=== PATIENT | male | born 1980 | race Caucasian/White ===

== ENCOUNTER 2016-10-12 09:47 | Emergency (ER) | payer OTHER ==
[~2016-10-12] VITALS: Ht 182.9 cm; Wt 72.7 kg
[~2016-10-12 09:47] MED LIST: LORA-302 PO
[2016-10-12 09:59] VITALS: BP 159/93; PULSE 87; RESP 16; O2SAT 100
--- NOTE | 2016-10-12 10:04 | ED.REPORT ---
HPI-Abd Pain M Under 40 Date of Service October 12, 2016 ED Provider: Dr. Alcantara 36 y/o male with a hx of DM presents to the ED complaining of abdominal pain and vomiting , onset 3 days ago. The pt reports he experienced abdominal pain in the middle of the night 3 days ago and began vomiting. Yesterday, the pt felt better and went to work but the pain returned last night after dinner. He states "it feels like my stomach is in knots". Associated sx include vomiting every 15 minutes and mild diarrhea. The pt denies fever, dysuria, chest pain and cough. He states he has had similar sx before at which point he was put on IV and given anti-nausea medications. His current blood sugar is 211. Nursing Notes Stated Complaint: NAUSEA/STOMACH PAIN Chief Complaint: Male Abdominal Pain Nursing Notes Reviewed: Yes Allergies: Coded Allergies: No Known Allergies (Unverified , 05/01/15) Scheduled PRN Lorazepam (Ativan) 0.5 Mg Tablet 0.5 MG PO HS PRN PRN For Insomnia Take for anxiety and difficulty sleeping Metoclopramide (Reglan) 10 Mg Tablet 10 MG PO QID PRN PRN For Nausea General Time Seen by MD: 10:04 Chief Complaint Abdominal pain Hx Obtained From: Patient Arrived By: Walk-in Sudden in Onset?: Yes Onset Occurred: 3 days ago Symptom Duration: Intermittent Progression since Onset: Unchanged Location: : Diffuse Quality: Painful Radiation: : Does not radiate Severity: Current: Severe Severity: Maximum: Moderate Recent Healthcare: No recent doctor visit Similar Sx Previous: Yes Past Medical History Past Medical History Reports: Diabetes mellitus Past Surgical History Orthoscopic right knee surgery Right hand fracture repair Family History Reports: Diabetes mellitus, Hypertension Smoking History Current Every Day Smoker Social History Alcohol Use: "Social" Drug Use: Denies drug use Other Social History: Good social support Ambulatory Status Independent Review of Systems Constitutional: Denies: Fever Respiratory: Denies: Non-productive cough Cardiovascular: Denies: Chest pain GI: Reports: Abdominal pain, Diarrhea, Vomiting Male: Denies Dysuria Complete sys rev & neg: except as marked. Physical Exam Initial Vital Signs Vital Signs (First) Date Time Temp Pulse Resp B/P Pulse Ox O2 Delivery O2 Flow Rate FiO2 10/12/16 09:59 36.4 87 16 159/93 100 Room Air Initial VS: Reviewed Head / Eyes: Atraumatic, Normocephalic Neck: Supple, Full range of motion Extremities: Vascular intact, Neuro intact, No swelling, No tenderness Skin: Warm, Dry, No cyanosis Neurologic: Alert, Oriented, Nonfocal General/Constitutional: Awake, Alert, Cooperative Distress / Hydration: Positive: Distress moderate Respiratory / Chest: Atraumatic, Breath sounds NL, No respiratory distress, No rhonchi, No wheezing Cardiovascular: Heart rate NL, Regular rhythm, Heart sounds NL Abdomen: Atraumatic, No guarding, No rebound Tenderness/Guarding/Rebound: Positive: Tender diffuse (Moderate) Bowel Sounds / Distention: Positive: Bowel sounds hypoactive Back: Atraumatic, Full range of motion Interpretation & Diagnostics Lab Results Interpretation Result Diagram: 10/12/16 1029 Test 10/12/16 10:29 10/12/16 11:05 Sodium Level 136mEq/L (134-144) Potassium Level 3.8mEq/L (3.5-5.2) Chloride Level 96mEq/L (97-108) Carbon Dioxide Level 22mmol/L (18-29) Blood Urea Nitrogen 10mg/dL (6-20) Creatinine 0.50mg/dL (0.76-1.27) Estimat Glomerular Filtration Rate 200mL/min (>59) Glucose Level 232mg/dL (60-99) Lactic Acid Level 2.1mmol/L (0.4-2.0) Calcium Level 9.5mg/dL (8.5-10.1) Total Bilirubin 1.3mg/dL (0.0-1.2) Aspartate Amino Transf (AST/SGOT) 33U/L (0-50) Alanine Aminotransferase (ALT/SGPT) 25U/L (0-44) Alkaline Phosphatase 72U/L (25-150) Total Protein 7.3g/dL (6.4-8.4) Albumin 4.4g/dL (3.4-5.0) Lipase 9U/L (13-60) Ketones Negative (Negative) Re-Eval/Medical Decision Re-Evaluation/Progress #1: Time of Eval: 11:36 Patient Status: Condition improved Re-Evaluation/Progress Note: Rechecked pt. He reports mild abdominal pain but feels better overall. Informed the pt that lab results are still pending Re-Evaluation/Progress #2: Time of Eval: 12:14 Patient Status: Condition improved Re-Evaluation/Progress Note: Rechecked pt. He reports he feels significantly better. Discussed lab results and diagnosis. Informed the pt of the plan to discharge. Pt understands and agrees with plan. F/U instructions and RTER warning given. All questions addressed. Consultation : Call Returned at: 10:18 Note: Consulted PNP. Pt gets prescription for 0.5 mg Alprazolam #30 tabs monthly. Counseled Regarding: Diagnosis, Lab results, Need for follow-up, When/why to return to ED Patient Discharge & Departure Primary Impression: Acute abdominal pain Disposition: Home Discharge Condition All VS Reviewed: Yes Patient Instructions: Acute Abdominal Pain (ED) Additional Instructions: No dangerous cause for your abdominal pain is discovered today. Specifically, no evidence of diabetic ketoacidosis or acute abdominal infection. I think symptomatic therapy should be sufficient to control your symptoms over the next couple of days. I recommended ibuprofen or Tylenol as needed for pain. Metoclopramide will also be helpful for abdominal cramps or nausea. Take as directed. I see that Patty Bond prescribes lorazepam for you. I recommend that you take this as prescribed but realize that a double dose will probably be more beneficial for severe abdominal cramps. Follow-up right away for high fever, vomiting out of control or worsening symptoms. Follow-up next week if not resolved. Referrals: Sukhi Martin MD (PCP) Scribe Attestation Portions of this note were transcribed by Elian Tovar. I, , personally performed the history, physical exam and medical decision-making;I reviewed and confirmed the accuracy of the information in the transcribed note. Signed by Jonny Coy. 10/12/16 1221 copies to: Sukhi Martin MD, Kirk H MD October 12, 2016 10:04 Elian Tovar October 12, 2016 10:24
[2016-10-12] MEDS ORDERED: 0.9% Sodium Chloride 1,000 ML IV ONE ×3 (10:21→12:15)
[2016-10-12] MEDS ORDERED: MetoCLOpramide 5 mg/mL 2 mL Inj IVPUSH ONE (10:25)
[2016-10-12] MEDS ORDERED: Dexamethasone 10 mg/mL Inj IVPUSH ONE (10:25)
[2016-10-12] MEDS ORDERED: Acetaminophen IV 1,000 MG in IV Premix 1 EACH IV ONE (10:25)
[2016-10-12] MEDS ORDERED: Ondansetron 2 mg/mL 2 mL Inj IVPUSH ONE (10:25)
[2016-10-12 11:55] VITALS: BP 142/74; PULSE 64; RESP 18; O2SAT 100
[2016-10-12] MEDS ORDERED: METO-301 PO (12:17)
[2016-10-12 13:07] VITALS: BP 150/81; RESP 18; O2SAT 100
== END 2016-10-12 13:00 | disposition home or self-care (01) ==
LOC: SED 09:47
DX: R10.84 Generalized abdominal pain (principal); R19.7 Diarrhea, unspecified; R11.10 Vomiting, unspecified; E11.9 Type 2 diabetes mellitus without complications; F17.200 Nicotine dependence, unspecified, uncomplicated
CPT/HCPCS: 36415; 80053; 82009; 82948; 83605; 83690; 96361; 96374; 96375; 99285; J0131; J1100; J1200; J1885; J2060; J2405; J2765; J7030